=== PATIENT | male | born 1960 | race Caucasian/White ===

== ENCOUNTER 2016-11-01 11:33 | Emergency (ER) | payer OTHER ==
[~2016-11-01] VITALS: Ht 182.9 cm; Wt 78.4 kg
[~2016-11-01 11:33] MED LIST: 1-ME1LIQ PO; AMBI10TA PO; DICL75 PO; DOXY100T PO; FLUO20TA20 PO; FOLI1TAB PO; OMEP20CA5 PO; TRAZ100 PO; ULTR50TA PO; VENTAER INH; ZIPR20CA PO
[2016-11-01 11:42] VITALS: BP 137/92; PULSE 79; RESP 20; TEMP 99.2; O2SAT 96
[2016-11-01] MEDS ORDERED: TRAM50TA PO (11:59)
[2016-11-01] MEDS ORDERED: ASPI325T33 PO (11:59)
[2016-11-01] MEDS ORDERED: DICL75TA PO (11:59)
[2016-11-01] MEDS ORDERED: FOLI800T PO (11:59)
[2016-11-01] MEDS ORDERED: RISP2TAB2 PO (11:59)
[2016-11-01] MEDS ORDERED: AMLO10TA2 PO (11:59)
[2016-11-01] MEDS ORDERED: TRAZ100T6 PO (11:59)
[2016-11-01] MEDS ORDERED: AMIO0.1T PO (11:59)
[2016-11-01] MEDS ORDERED: FINA5TAB2 PO (11:59)
[2016-11-01] MEDS ORDERED: ZIPR1CAP6 PO (11:59)
[2016-11-01] MEDS ORDERED: ZOLP10TA3 PO (11:59)
[2016-11-01] MEDS ORDERED: FLUO20CA12 PO (11:59)
[2016-11-01] MEDS ORDERED: VENTAER INH (11:59)
[2016-11-01] MEDS ORDERED: OMEP20TA PO (11:59)
[2016-11-01] MEDS ORDERED: RANI150T PO (11:59)
[2016-11-01] MEDS ORDERED: LEVS0.123 PO (12:04)
--- NOTE | 2016-11-01 12:04 | PD ---
HPI Chief Complaint: GI Complaint Time Seen by Provider: 11:57 Travel History International Travel<30 days: No Contact w/Intl Traveler<30days: No Traveled to known affect area: No History of Present Illness HPI Patient presents with complaints of loose stools for 2-3 weeks. Denies any blood per stool. Denies any nausea vomiting or fever. Taking fluids and food well. Denies any recent travel. Denies any camping. Denies any antibiotics. Concerns of C. difficile exposure. PFSH Past Medical History ADHD: Yes Arthritis: No Asthma: No Autoimmune Disease: No Bipolar Disorder: Yes Anxiety: No Depression: No Heart Rhythm Problems: No Cancer: Yes (SKIN) Cardiovascular Problems: Yes High Cholesterol: Yes Chemotherapy: No Chest Pain: No Congestive Heart Failure: No COPD: No Cerebrovascular Accident: Yes Diabetes: No Diminished Hearing: No Endocrine: No GERD: Yes Genitourinary: No Headaches: Yes Hepatitis: No Hiatal Hernia: Yes Hypertension: Yes Immune Disorder: No Kidney Stones: No Musculoskeletal: No Neurologic: Yes (TIA'S) Psychiatric: No Reproductive: No Respiratory: Yes (CHRONIC BROCHITIS) Immunizations Current: Yes Migraines: No Myocardial Infarction: Yes (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) Radiation Therapy: No Renal Failure: No Seizures: No Sickle Cell Disease: No Sleep Apnea: No Thyroid Disease: No Ulcer: No PNEUMOCCOCAL Vaccine (Year): 2 Past Surgical History Abdominal Surgery: Yes (APPENDECTOMY) AICD: No Appendectomy: Yes Arteriovenous Shunt: No Cardiac Surgery: No Ear Surgery: No Endocrine Surgery: No Eye Surgery: Yes (BILATERAL MUSCLE SLICE) Genitourinary Surgery: No Gynecologic Surgery: No Insulin Pump: No Joint Replacement: No Oral Surgery: No Thoracic Surgery: No Tonsillectomy: Yes Other Surgery: Yes (appendix removed) Social History Alcohol Use: Yes (OCCASIONAL PER PT) Tobacco Use: Yes (1 PPD) Substance Use: No Allergies-Medications (Allergen,Severity, Reaction): Coded Allergies: bee venom protein (honey bee) (Unverified Allergy, Severe, 09/23/16) codeine (Unverified Allergy, Severe, RASH, 09/23/16) Reported Meds & Prescriptions Reported Meds & Active Scripts Active Doxycycline Hyclate 100 mg (Doxycycline Hyclate) 100 Mg Tab 100 Mg PO BID Ventolin Hfa (Albuterol Sulfate) 18 Gm Aero 2 Puff INH Q4 PRN * SHAKE WELL BEFORE USE * Reported Diclofenac Sodium 75 Mg Tab 75 Mg PO BID PRN Ultram (Tramadol HCl) 50 Mg Tab 50 Mg PO Q4H PRN Ziprasidone Hcl 20 Mg Cap 20 Mg PO BID Fluoxetine (Fluoxetine HCl) 20 Mg Cap 20 Mg PO DAILY Amlodipine Besylate 10 mg (Amlodipine Besylate) 10 Mg Tab 10 Tab PO DAILY Trazodone Hcl (Trazodone HCl) 100 Mg Tab 100 Mg PO HS Folate (Folic Acid) 1 Mg Tab 1 Mg PO BID Ambien (Zolpidem Tartrate) 10 Mg Tab 10 Mg PO HSPRN INSOMNIA Prilosec 20 mg (Omeprazole) 20 Mg Capcr 20 Mg PO BID Review of Systems General / Constitutional: No: Fever Eyes: No: Visual changes HENT: No: Headaches Cardiovascular: No: Chest Pain or Discomfort Respiratory: No: Shortness of Breath Gastrointestinal: Positive: Diarrhea, No: Abdominal Pain Genitourinary: No: Dysuria Musculoskeletal: No: Pain Skin: No Rash Neurologic: No: Weakness Psychiatric: No: Depression Endocrine: No: Polydipsia Hematologic/Lymphatic: No: Easy Bruising Physical Exam Narrative GENERAL: Well-nourished, well-developed patient. SKIN: Focused skin assessment warm/dry. HEAD: Normocephalic. EYES: No scleral icterus. No injection or drainage. NECK: Supple, trachea midline. No JVD or lymphadenopathy. CARDIOVASCULAR: Regular rate and rhythm without murmurs, gallops, or rubs. RESPIRATORY: Breath sounds equal bilaterally. No accessory muscle use. GASTROINTESTINAL: Abdomen soft, non-tender, nondistended. MUSCULOSKELETAL: No cyanosis, or edema. BACK: Nontender without obvious deformity. No CVA tenderness. Data Data Last Documented VS Vital Signs Date Time Temp Pulse Resp B/P (MAP) Pulse Ox O2 Delivery O2 Flow Rate FiO2 11/01/16 11:42 99.2 79 20 137/92 (107) 96 MDM Medical Decision Making Medical Screen Exam Complete: Yes Emergency Medical Condition: Yes Differential Diagnosis Enteritis, C. difficile, colitis, parasites Narrative Course Assessment and plan discussed with patient at bedside. Patient states he is unable to provide a stool sample Diagnosis Primary Impression: Diarrhea Qualified Codes: R19.7 - Diarrhea, unspecified Patient Instructions: General Instructions Additional Instructions: Encouraged fluids and a bland high-fiber diet. Follow-up with PCP for stool studies if symptoms do not improve. Return to emergency room with any onset of new symptoms. Med/Other Pt SpecificInfo: Prescription(s) given Scripts Hyoscyamine (Levsin) 0.125 Mg Tab 0.125 MG PO Q4H for Gastrointestinal disorders for 30 Days, #180 TAB 0 Refills Prov: Alexis Leos MD 11/01/16 Disposition: 01 DISCHARGE HOME Condition: Good Alexis Leos MD Nov 01, 2016 12:04
== END 2016-11-01 12:18 | disposition home or self-care (01) ==
LOC: PHED 11:33
DX: R19.7 Diarrhea, unspecified (principal)
CPT/HCPCS: 99283